=== PATIENT | female | born 1950 | race Caucasian/White ===

== ENCOUNTER 2017-08-12 12:37 | Emergency (ER) | payer MEDICARE, BC ==
[~2017-08-12] VITALS: Ht 157.5 cm; Wt 69.4 kg
--- NOTE | 2017-08-12 12:45 | NUR ---
[id number]: C/O SOB, HIGH BLOOD PRESSURE, CP. GIVEN ASPIRIN EN ROUTE, WITH RELIEF. DENIES CHEST PAIN AT THIS MOMENT. A/OX 4. BREATHING EVEN AND UNLABORED. PATIENT IS DIAPHORETIC. VITALS REMAINS STABLE, NO DISTRESS. SAFETY AND COMFORT MEASURES IN PLACE. AWAITING MD ORDERS.
[2017-08-12] MEDS ORDERED: ONDANSETRON HCL/PF 4 MG/2 ML VIAL ONE (12:49)
[2017-08-12] MEDS ORDERED: MORPHINE SULFATE INJ 4 MG/ML DISP.SYRIN ONE (12:50)
[2017-08-12] MEDS ORDERED: ASPIRIN 81 MG TAB.CHEW ONE (12:50)
[2017-08-12] MEDS ORDERED: ONDANSETRON HCL/PF 4 MG/2 ML VIAL IVP ONE (13:00)
[2017-08-12] MEDS ORDERED: IV NS 0.9% 500 ML BAG IV ONE (13:00)
[2017-08-12] MEDS ORDERED: MORPHINE SULFATE INJ 2 MG/ML DISP.SYRIN IV ONE (13:00)
[2017-08-12] MEDS ORDERED: ASPIRIN 81 MG TAB.CHEW PO ONE (13:00)
--- NOTE | 2017-08-12 13:00 | NUR ---
NEW IV STARTED ON RIGHT WRIST, 20G.
--- NOTE | 2017-08-12 13:02 | NUR ---
FREIGHT COORDINATOR A BEDSIDE FOR BLOOD DRAW.
[2017-08-12 13:04] LABS: BASOPHILS # (AUTO) 0.1 /CMM (0.0-0.2); BASOPHILS % (AUTO) 0.7 % (0.0-2.0); EOSINOPHILS % (AUTO) 3.5 % (0.0-6.0); HEMATOCRIT 41 % (33-45); LYMPHOCYTES # (AUTO) 1.3 /CMM (0.8-4.8); LYMPHOCYTES % (AUTO) 18.4 % (20.0-44.0); MEAN CORPUSCULAR HGB CONC 34 g/dl (31.0-36.0); MEAN CORPUSCULAR VOLUME 86 fL (82-100); MONOCYTES # (AUTO) 0.6 /CMM (0.1-1.30); MONOCYTES % (AUTO) 8.2 % (2.0-12.0); NEUTROPHILS % (AUTO) 69.2 % (43.0-81.0); PLATELET COUNT (AUTO) 269 /CMM (150-450); RED BLOOD CELL COUNT(AUTO) 4.78 MIL/uL (4.0-5.2); WHITE BLOOD COUNT (AUTO) 7.3 K/uL (4.3-11.0)
--- NOTE | 2017-08-12 13:05 | NUR ---
PATIENT MEDICATED PER MD ORDERS
--- NOTE | 2017-08-12 13:06 | NUR ---
MORPHINE CANCELLED BY DR. LAMBERT. PATIENT IS CURRENTLY ON SUBOXONE.
[2017-08-12 13:17] LABS: CALCIUM, SERUM 10.1 mg/dL (8.5-10.1); CARBON DIOXIDE 25 mmol/L (21-32); CHLORIDE 105 mmol/L (98-107); CREATININE 1.4 mg/dL (0.6-1.3); GLUCOSE 152 mg/dL (74-106); POTASSIUM 4.5 mmol/L (3.5-5.1); SODIUM SERUM 138 mmol/L (136-145); UREA NITROGEN, BLOOD 19 mg/dL (7-18)
[2017-08-12 13:20] LABS: INR 0.92 (0.85-1.15)
[2017-08-12 13:22] LABS: ALANINE AMINOTRANSFERASE 7 U/L (12-78); ALBUMIN 4.3 g/dL (3.4-5.0); ALKALINE PHOSPHATASE 62 U/L (46-116); ASPARTATE AMINOTRANSFERASE 9 U/L (15-37); BILIRUBIN,DIRECT 0.1 mg/dL (0.0-0.2); BILIRUBIN,TOTAL 0.4 mg/dL (0.2-1.0); TOTAL PROTEIN, SERUM 8.2 g/dL (6.4-8.2)
[2017-08-12 13:24] LABS: TROPONIN I < 0.017 ng/mL (0.00-0.056)
[2017-08-12] MEDS ORDERED: LABETALOL HCL IV 100MG VIAL ONE (14:07)
[2017-08-12] MEDS ORDERED: IOHEXOL-350 100 ML VIAL IV ONE (14:14)
[2017-08-12] MEDS ORDERED: LABETALOL HCL IV 100MG VIAL IV ONE (14:30)
--- NOTE | 2017-08-12 14:45 | NUR ---
PATIENT TAKEN TO CTA VIA STRETCHER. PER TOI STOUT TO DO CTA DESPITE CREATININE OF 1.3.
[2017-08-12 14:55] LABS: T4 (THYROXINE) 11.5 ug/dL (4.7-13.3); THYROID STIMULATING HORMONE 1.824 uIU/mL (0.358-3.74)
--- NOTE | 2017-08-12 15:00 | NUR ---
PATIENT RETURNED FROM CT IN STABLE CONDITION.
[2017-08-12] MEDS ORDERED: LORAZEPAM INJ 2 MG/ML VIAL IV ONE (16:00)
[2017-08-12] MEDS ORDERED: LORAZEPAM INJ 2 MG/ML VIAL ONE (16:03)
[2017-08-12] MEDS ORDERED: hydrALAZINE HCL IV 20 MG VIAL IV ONE (16:30)
[2017-08-12 16:40] VITALS: BP 144/60
--- NOTE | 2017-08-12 16:43 | NUR ---
Patient discharged to home in stable condition. Written and verbal after care instructions given. Patient verbalizes understanding of instruction.
== END 2017-08-12 16:43 | disposition home or self-care (01) ==
LOC: ER 12:38
DX: R07.89 Other chest pain (principal); R61 Generalized hyperhidrosis; E21.3 Hyperparathyroidism, unspecified; I10 Essential (primary) hypertension; K59.00 Constipation, unspecified; Z88.0 Allergy status to penicillin; Z88.2 Allergy status to sulfonamides; Z79.82 Long term (current) use of aspirin; Z88.8 Allergy status to other drugs, medicaments and biological substances
CPT/HCPCS: 36415; 71045-TC; 80048-TC; 80076-TC; 84436-TC; 84443-TC; 84484-TC; 85025-TC; 85730-TC; A4606; J2060; J2270; J2405; J3490; J7040; Q9967; Z7610